=== PATIENT | male | born 1945 | race Caucasian/White ===

== ENCOUNTER 2017-11-02 10:42 | Outpatient (CLI) | payer MEDICARE, BC ==
[2017-11-02 12:03] LABS: Hematocrit 32.9 % (42.0-52.0); Mean Platelet Volume 7.2 fL (7.4-10.4); Red Blood Cell (RBC) Count 3.84 mill/uL (4.70-6.10); White Blood Cell (WBC) Count 4.8 thou/uL (4.8-10.8)
[2017-11-02 12:43] LABS: Anion Gap 9 mmol/L (10-20); BUN (Urea Nitrogen) 26 mg/dL (8.4-25.7); Calc. Creatinine Clearance 0 mL/min (70-130); Calcium 9.2 mg/dL (7.8-10.44); Carbon Dioxide 26 mmol/L (23-31); Chloride 104 mmol/L (98-107); Estimated GFR-MDRD 82
== END 2017-11-02 10:43 | disposition home or self-care (01) ==
LOC: LABBT 10:42
PROVIDERS: ATTEND Neurological Surgery
DX: Z01.818 Encounter for other preprocedural examination (principal); M43.16 Spondylolisthesis, lumbar region
CPT/HCPCS: 80048; 85027; 93005; 93010

== ENCOUNTER 2017-11-04 06:15 | Day surgery (SDC) | payer MEDICARE, BC ==
[2017-11-02 11:07] VITALS: BMI 33.7
--- NOTE | 2017-11-03 17:34 | HP ---
HISTORY OF PRESENT ILLNESS: Mr. Mason is a pleasant 72-year-old man who we know from prior lumbar d ecompression from a little over a year ago that returns now with mostly axial low back pain. Flexion and extension films as well as a CT scan of the lumbar spine reveals spondylolisthesis at L4-L5 that has abnormal motion on the movement films. As such, he is here to discuss treatment options for thi s purpose. PAST MEDICAL HISTORY: Significant for type 2 diabetes, pruritus ani, coronary arterial disease, inso mnia, chronic pain, hypertension, gastroesophageal reflux disease and depression. MEDICATIONS: Duloxetine, aspirin, fluticasone, isosorbide mononitrate, Toprol-XL, Theragran, Nitrost at, omeprazole, insulin pen, glipizide, clopidogrel, Celebrex, Crestor, Levemir, losartan, lidocaine ointment, Valium, Lyrica, hydrocodone and amitriptyline. ALLERGIES: LISINOPRIL AND METFORMIN. PHYSICAL EXAMINATION: The patient is alert and oriented x3. Gait is severely antalgic. Lower extre mity motor exam is normal bilaterally. ASSESSMENT: Unstable spondylolisthesis and back pain. PLAN: Dr. Khan met with the patient, reviewed imaging and ultimately advocated for an L4-L5 fusion. We explained to the patient the risks, benefits, alternatives of the procedure. The patient expres sed understanding and would like to move forward with surgery as discussed. I do believe the patient is mentally competent and capable of making medical decisions for himself. We will move forward wit h surgery as planned. This is Chandan Tang PA-C dictating for Dr. Khan.
[2017-11-04] MEDS ORDERED: Bupivacaine PF 0.5% 30 ML VIAL ONE (06:45)
[2017-11-04] MEDS ORDERED: Thrombin 5000 UNITS/5 ML VIAL ONE (06:45)
[2017-11-04] MEDS ORDERED: Bupivacaine/Epinephrine 0.25% 30 ML VIAL ONE (06:45)
[2017-11-04] MEDS ORDERED: CEFAZOLIN/Water 2 GM/20 ML SYRINGE ONE ×2 (07:04→12:14)
[2017-11-04] MEDS ORDERED: Fentanyl 250 MCG/5 ML VIAL ONE (07:42)
[2017-11-04] MEDS ORDERED: Midazolam HCl 2 mg/2 ml Vial ONE (07:51)
[2017-11-04] MEDS ORDERED: tiZANidine HCl 4 MG TAB ONE (11:52)
[2017-11-04] MEDS ORDERED: Tamsulosin HCl 0.4 MG CAP ONE (11:54)
[2017-11-04] MEDS ORDERED: HYDROcodone/Acetaminophen 5/325 mg Tablet ONE (12:00)
--- NOTE | 2017-11-04 12:32 | OP ---
DATE OF PROCEDURE: 11/04/2017 SURGEON: Socrates Khan M.D. G[employer]ER MECHANIC: Chandan Tang PA-C. INDICATION: Pain. DIAGNOSES: Lumbar stenosis, lumbar spondylolisthesis. PROCEDURE: L4-5 lumbar decompression which is reoperation. ANESTHESIA: General. TECHNIQUE: The patient was brought to the operating room and placed under general anesthesia. He wa s flipped from a supine to a prone position on the operating room table. A linear incision was plann ed at the location of an old incision and extended slightly superior. This area was prepped and drap ed in the usual sterile fashion. Following an appropriate operative pause, the incision was created. Soft tissues were swept away from midline. Self-retaining retractors were placed in the wound for optimal exposure. After confirming the appropriate levels, a high high-speed cutting drill bit, 2, 3 and 4 mm Kerrisons were used to perform a more superior laminectomy. The old laminectomy defect was extended laterally to encompass more of the medial aspect of the facet joints. There did appear to be a milky substance coming from the right side near the L4-5 interface. This was cultured. Because of some concern I had for infection, I decided not to perform an instrumented fusion. We further de compressed the L4-5 segment. The wound was irrigated. Hemostasis was maintained throughout. The wo und was then closed in anatomic layers and a pressure dressing was applied. There were no known proc edural complications.
[2017-11-04] MEDS ORDERED: Glycopyrrolate 0.2 MG/ML 5 ML SYRINGE ONE (16:28)
[2017-11-04] MEDS ORDERED: Lidocaine 1% PF 5 ML VIAL ONE (16:28)
[2017-11-04] MEDS ORDERED: Ketorolac Tromethamine 30 MG/ML VIAL ONE (16:28)
[2017-11-04] MEDS ORDERED: PHENYLEPHRINE-NS 100 MCG/ML 10 ML SYRINGE ONE (16:28)
[2017-11-04] MEDS ORDERED: Ondansetron HCl/PF 4 MG/2 ML Vial ONE (16:28)
[2017-11-04] MEDS ORDERED: Propofol 200 MG/20 ML VIAL ONE (16:28)
[2017-11-04] MEDS ORDERED: ePHEDrine/0.9% NaCl/PF SYRINGE 50 mg/10 ml ONE (16:28)
== END 2017-11-04 12:45 | disposition home or self-care (01) ==
LOC: SDC 06:15
PROVIDERS: ATTEND Neurological Surgery
PROC: 00NY0ZZ Release Lumbar Spinal Cord, Open Approach (ICD-10-PCS; principal; 2017-11-04)
PROC: 01NB0ZZ Release Lumbar Nerve, Open Approach (ICD-10-PCS; 2017-11-04)
DX: M43.16 Spondylolisthesis, lumbar region (principal); M48.061 Spinal stenosis, lumbar region without neurogenic claudication; E11.9 Type 2 diabetes mellitus without complications; G47.00 Insomnia, unspecified; I10 Essential (primary) hypertension; K21.9 Gastro-esophageal reflux disease without esophagitis; F32.9 Major depressive disorder, single episode, unspecified; Z88.8 Allergy status to other drugs, medicaments and biological substances; Z79.82 Long term (current) use of aspirin; Z79.4 Long term (current) use of insulin; Z79.899 Other long term (current) drug therapy; Z98.890 Other specified postprocedural states
CPT/HCPCS: 36416; 76001; 87070; 87205; J0131; J1885; J2001; J2250; J2405; J2704; J3010; S0020

== ENCOUNTER 2018-02-02 09:16 | Outpatient (CLI) | payer MEDICARE, BC ==
--- NOTE | 2018-02-02 11:20 | RAD ---
LUMBAR SPINE THREE VIEWS: History: 72-year-old male with history of low back pain and lumbar radiculopathy with difficulty walking. Hist ory of back surgery. Comparison: 08-06-17 FINDINGS: Neutral, flexion, and extension lateral views of the lumbar spine are performed. There is an approxim ately 1.1 cm diameter anterolisthesis of L4 on L5 without significant abnormal translation between fl exion and extension. There appear to be some post-operative changes at the L4-5 level. Generalized sp ondylosis. No evidence for acute fracture. IMPRESSION: Generalized spondylosis. Stable anterolisthesis of L4 on L5. POS: C
--- NOTE | 2018-02-02 11:44 | CT ---
NONCONTRAST ENHANCED CT IMAGES LUMBAR SPINE: HISTORY: Lumbar radiculopathy (M54.16). COMPARISON: 08/06/2017 TECHNIQUE: Axial images are obtained with coronal and sagittal reconstructions. FINDINGS: T12-L1: Unremarkable. L1-L2: There is a focal area of annulus fibrosis calcification along the posterior paracentral L1-L2 disk. No significant degree of central stenosis seen. L2-L3: There is bilateral facet hypertrophy and some minimal ligamentum flavum hypertrophy. A subtl e broad-based disk bulge is seen. This results in mild central and lateral recess stenosis. L3-L4: There is severe L3-L4 facet hypertrophy. 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 A broad-based di sk bulge is seen. This results in moderate to severe L3-L4 central and lateral recess stenosis. Thi s is unchanged since the previous comparison CT. L4-L5: There are severe L4-L5 facet degenerative changes and hypertrophy. There is anterolisthesis of L4 on L5 with approximately 8 mm of anterolisthesis of L4 on L5. This results in severe L4-L5 nanci tral and lateral recess stenosis. There is moderate bilateral neural foraminal narrowing seen. There are vacuum disk changes seen at the L4-L5 intervertebral disk space. There is a superior endplate compression fracture at the upper aspect of the L5 vertebra. This has n ot significantly changed since the previous comparison exam. L5-S1: There is some calcification along the posterior aspect of the annulus fibrosis at L5-S1. The re is a broad-based disk bulge seen. Bilateral facet hypertrophy is seen. There is a moderate degre e of central stenosis. The severe facet hypertrophy bilaterally does result in moderate bilateral ne ural foraminal narrowing. IMPRESSION: Predominantly L4-L5 and L5 facet degenerative changes with significant stenosis at L4-L5, less so at L5-S1. Bilateral neural foraminal narrowing is also seen. Findings are stable and unchanged. POS: [facility]
== END 2018-02-02 09:17 | disposition home or self-care (01) ==
LOC: TBSIIMAG 09:16
PROVIDERS: ATTEND Neurological Surgery
DX: M47.26 Other spondylosis with radiculopathy, lumbar region (principal); M48.061 Spinal stenosis, lumbar region without neurogenic claudication; M48.07 Spinal stenosis, lumbosacral region; M99.73 Connective tissue and disc stenosis of intervertebral foramina of lumbar region; M43.16 Spondylolisthesis, lumbar region
CPT/HCPCS: 72100; 72131

== ENCOUNTER 2018-07-23 09:18 | Outpatient (CLI) | payer MEDICARE, BC ==
--- NOTE | 2018-07-23 10:46 | ULT ---
HEPATIC SONOGRAM WITH DUPLEX EVALUATION: HISTORY: Abnormal liver function tests. FINDINGS: Gallbladder is surgically absent. The common duct is 0.5 cm. Liver is diffusely echogenic without focal mass or intrahepatic biliary dilatation. No free fluid. The spleen is 14.1 cm without focal abnormality. Good color and spectral Doppler flow are present within the hepatic and splenic arteries. Portal nivia ous flow is towards the liver. Hepatic venous flow is towards the IVC. IMPRESSION: 1. Status post cholecystectomy. 2. Hepatosteatosis. 3. Findings of portal venous hypertension include mild splenomegaly. Appropriate directional portal venous flow. POS: [facility]
== END 2018-07-23 09:19 | disposition home or self-care (01) ==
LOC: SCSULT 09:18
PROVIDERS: ATTEND Internal Medicine Gastroenterology
DX: L29.0 Pruritus ani (principal); R94.5 Abnormal results of liver function studies; F10.10 Alcohol abuse, uncomplicated; D50.1 Sideropenic dysphagia; K76.0 Fatty (change of) liver, not elsewhere classified; K76.6 Portal hypertension; Z79.1 Long term (current) use of non-steroidal anti-inflammatories (NSAID); Z90.49 Acquired absence of other specified parts of digestive tract
CPT/HCPCS: 76705

== ENCOUNTER 2019-08-08 13:23 | Outpatient (CLI) | payer MEDICARE, BC ==
[2019-08-08] MEDS ORDERED: Sodium Chloride 0.9% 15 ML NEB ONE (15:00)
--- NOTE | 2019-08-08 16:49 | HP ---
HISTORY OF PRESENT ILLNESS: Mr. Jimbo Mason is a very pleasant 73-year-old gentleman, who presents [facility] for evaluation of wounds of the lower legs and right and left medial buttocks secondary to severe pruritus. The patient was previously seen in the [facility]ound Center in 2010 for ulcerations of the perianal region from pruritus ani. Today, the patient reports wounds of the lower legs secondary to pruritus. The patient was referred to the Wound Center by Dr. Tonia Lees on 07/12/2019. The patient states he has been seen by Dermatology, Neurology, and Surgery for his pruritus and wounds. PAST MEDICAL HISTORY: 1. Diabetes mellitus. 2. Hypertension. 3. Coronary artery disease. 4. Gastroesophageal reflux disease. 5. Obstructive sleep apnea. 6. Hypothyroidism. 7. History of anemia. PAST SURGICAL HISTORY: 1. Cholecystectomy. 2. Shoulder surgery. 3. Knee surgery. 4. L4-L5 lumbar decompression on 09/08/2016. 5. Redo L4-L5 lumbar decompression on 11/04/2017. 6. Tonsillectomy. MEDICATIONS: 1. Levothyroxine. 2. Levemir. 3. Humalog. 4. Glipizide. 5. Crestor. 6. Prilosec. 7. Advil. 8. Aspirin. 9. Isosorbide. 10. Metoprolol. 11. Citalopram. 12. Losartan. 13. Synthroid. 14. FeSO4. 15. Zolpidem. 16. Multivitamin. 17. Vitamin D. 18. Fish oil. 19. Tylenol No. 3. ALLERGIES: LISINOPRIL. SOCIAL HISTORY: Social history is significant for tobacco use of approximately 2 packs of cigarettes per day beginning at age 15 or 16. The patient states that he stopped smoking at age 23. The patient admits to the consumption of 2 to 4 drinks per day also since age 16. FAMILY HISTORY: Family history is negative for diabetes mellitus or coronary artery disease. PHYSICAL EXAMINATION: VITAL SIGNS: Temperature 98.4, pulse 89, respirations 20, and blood pressure 173/77. Accu-Chek 129. GENERAL: A 73-year-old gentleman, lying on table in examination room, in no acute distress. HEENT: Normocephalic and atraumatic. NECK: No nuchal rigidity. CHEST: Clear to auscultation. CV: Regular rate and rhythm. ABDOMEN: Soft. EXTREMITIES: Wounds over the right and left lower legs are present from scratching of the skin. All of the wounds are associated with eschar. No drainage is associated with any of the wounds serous or purulent. No cellulitis of the right or left lower extremity is appreciated. No maceration of the skin of the right or left lower extremity is appreciated. No significant edema of the right or left lower extremity is present on exam today. NEUROLOGIC: Grossly nonfocal. BACK: Multiple ulcerations of the right and left medial buttocks are present. A sample of the purulent drainage associated with one of the ulcerations was sent for aerobic and anaerobic cultures. No fluctuant masses are present over the right or left buttock, only ulcerations. ASSESSMENT AND PLAN: 1. Multiple ulcerations of right and left medial buttocks as described above. The patient also has wounds of the right and left lower legs associated with dry stable eschar from scratching. The patient has been given a prescription for Bactrim DS #20 one p.o. b.i.d. x10 days. Antibiotic therapy will be modified based upon the results of the cultures obtained today. As stated above, no fluctuant masses are appreciated over the right or left buttock. I will see Mr. Mason again in 2 to 3 weeks. I will also discuss the treatment plan with the patient's primary care physician, Dr. Tonia Lees. 2. Diabetes mellitus. The patient's Accu-Chek in clinic today is 129. The patient has been told that for optimal wound healing, his blood glucoses should remain below 150. 3. Hypertension. 4. Coronary artery disease. 5. Gastroesophageal reflux disease. 6. Obstructive sleep apnea. 7. Hypothyroidism. 8. History of anemia. Job ID: [id number]
== END 2019-08-08 13:24 | disposition home or self-care (01) ==
LOC: WCC 13:23
PROVIDERS: ATTEND Family Medicine
DX: E11.622 Type 2 diabetes mellitus with other skin ulcer (principal); L98.419 Non-pressure chronic ulcer of buttock with unspecified severity; I10 Essential (primary) hypertension; I25.10 Atherosclerotic heart disease of native coronary artery without angina pectoris; K21.9 Gastro-esophageal reflux disease without esophagitis; G47.33 Obstructive sleep apnea (adult) (pediatric); E03.9 Hypothyroidism, unspecified; Z86.2 Personal history of diseases of the blood and blood-forming organs and certain disorders involving the immune mechanism
CPT/HCPCS: 87070; 87077; 87205; A4218

== ENCOUNTER 2019-08-29 10:37 | Outpatient (CLI) | payer MEDICARE, BC ==
--- NOTE | 2019-08-29 12:15 | PRG ---
DATE OF SERVICE: 08/29/2019 HISTORY: Mr. Jimbo Mason is a 73-year-old gentleman who presents to the [facility] for evaluation of wounds of the lower legs and right and left medial buttocks secondary to severe pruritus. The patient was previously seen in the Wound Center in 2010 for ulcerations of the perianal region from pruritus ani. Today, the patient reports wounds of the upper extremity secondary to pruritus. At the time of the patient's last visit, Mr. Mason reported wounds of the lower legs secondary to pruritus. The patient was referred to the Wound Center by Dr. Stephania Lees on 07/12/2019. Previously, the patient stated that he had been seen by Dermatology, Neurology, and Surgery for his pruritus and wounds. PHYSICAL EXAMINATION: VITAL SIGNS: Temperature 97.9, pulse 62, respirations 16, and blood pressure 129/65. Accu-Chek 156. BACK: Multiple ulcerations of the right and left medial buttocks are present. No fluctuant masses are present over the right or left buttock, only ulcerations. ASSESSMENT AND PLAN: 1. Multiple ulcerations of right and left medial buttocks as described above. The patient was previously given a prescription for Bactrim DS #20 one p.o. b.i.d. x10 days. Cultures obtained at the time of the patient's last visit revealed the growth of Staphylococcus aureus, sensitive to Bactrim. Cultures also revealed the growth of Streptococcus agalactiae group B. As stated above, no fluctuant masses are appreciated over the right or left buttock. I will discuss the treatment plan with the patient's primary care physician, Dr. Stephania Lees, as well as the patient's son-in-law who is a hospitalist here at [facility] as per the patient's request. 2. Diabetes mellitus. The patient's Accu-Chek in clinic today is 156. The patient has been reminded that for optimal wound healing, his blood glucoses should remain below 150. 3. Hypertension. 4. Coronary artery disease. 5. Gastroesophageal reflux disease. 6. Obstructive sleep apnea. 7. Hypothyroidism. 8. History of anemia. Job ID: [id number]
== END 2019-08-29 10:38 | disposition home or self-care (01) ==
LOC: WCC 10:37
PROVIDERS: ATTEND Family Medicine
DX: E11.622 Type 2 diabetes mellitus with other skin ulcer (principal); L98.419 Non-pressure chronic ulcer of buttock with unspecified severity; L29.9 Pruritus, unspecified; I10 Essential (primary) hypertension; I25.10 Atherosclerotic heart disease of native coronary artery without angina pectoris; K21.9 Gastro-esophageal reflux disease without esophagitis; G47.33 Obstructive sleep apnea (adult) (pediatric); E03.9 Hypothyroidism, unspecified; Z86.2 Personal history of diseases of the blood and blood-forming organs and certain disorders involving the immune mechanism
CPT/HCPCS: 97602

== ENCOUNTER 2021-04-26 10:04 | Outpatient (CLI) | payer MEDICARE, BC | END 2021-04-26 10:05 | disposition home or self-care (01) | LOC: NM 10:04 | PROVIDERS: ATTEND Internal Medicine Critical Care Medicine | DX: I26.99 Other pulmonary embolism without acute cor pulmonale (principal); I70.90 Unspecified atherosclerosis; J98.4 Other disorders of lung | CPT/HCPCS: 71046; 78451; A9540 ==

== ENCOUNTER 2022-10-21 10:24 | Outpatient (CLI) | payer MEDICARE, BC | END 2022-10-21 10:25 | disposition home or self-care (01) | LOC: SCSRAD 10:24 | PROVIDERS: ATTEND Neurological Surgery | DX: M47.26 Other spondylosis with radiculopathy, lumbar region (principal) | CPT/HCPCS: 72110 ==

== ENCOUNTER 2022-10-21 18:24 | Emergency (ER) | payer MEDICARE, BC ==
[2022-10-21] MEDS ORDERED: Morphine 4 MG/ML VIAL ONE ×2 (19:02)
[2022-10-21] MEDS ORDERED: Orphenadrine Citrate 60 MG/2 ML VIAL ONE (19:03)
[2022-10-21 20:28] LABS: #Eosinphils 0.1 thou/uL (0.0-0.7); #Lymphocytes 1.1 thou/uL (1.20-3.40); #Monocytes 0.5 thou/uL (0.11-0.59); %Basophils 0.3 % (0.0-1.0); %Eosinophils 1.8 % (0.0-10.0); %Lymphocytes 19.4 % (21.0-51.0); %Monocytes 8.1 % (0.0-10.0); %Neutrophils 70.5 % (42.0-75.0); Hemoglobin 12.4 g/dL (14.0-18.0); Mean Corpuscular Hemoglobin 31.3 pg (27.0-31.0); Mean Corpuscular Volume 91.9 fl (78.0-98.0); Mean Platelet Volume 7.4 fL (7.4-10.4); Platelet Count 94 10x3/uL (130-400); RBC Distribution Width 13.1 % (11.5-14.5); Red Blood Cell (RBC) Count 3.97 mill/uL (4.70-6.10); White Blood Cell (WBC) Count 5.6 10x3/uL (4.8-10.8)
[2022-10-21 20:45] LABS: ALT (SGPT) 23 U/L (8-55); AST (SGOT) 26 U/L (5-34); Albumin 3.6 g/dL (3.4-4.8); Alkaline Phosphatase 64 U/L (40-110); Anion Gap 12 mmol/L (10-20); BUN (Urea Nitrogen) 30 mg/dL (8.4-25.7); Bilirubin, Total 0.5 mg/dL (0.2-1.2); Calc. Creatinine Clearance 0 mL/min (70-130); Calcium 9.1 mg/dL (7.8-10.44); Carbon Dioxide 22 mmol/L (23-31); Chloride 108 mmol/L (98-107); Estimated GFR 69; Globulin 3.1 g/dL (2.4-3.5); Glucose 133 mg/dL (83-110); Lipase 17 U/L (8-78); Potassium 4.5 mmol/L (3.5-5.1); Protein, Total 6.7 g/dL (5.8-8.1); Sodium 137 mmol/L (136-145)
[2022-10-21 21:28] LABS: Bilirubin Negative (Negative); Blood, Urine Negative (Negative); Clarity Clear (Clear); Glucose, Urine (Dipstick) Normal (Negative); Ketone, Urine Negative (Negative); Leukocyte Negative Leu/uL (Negative); Nitrite Negative (Negative); Protein, Urine (Dipstick) Negative (Neg-Trace); Specific Gravity, Urine 1.023 (1.002-1.036); Urobilinogen Normal mg/dL (Less than 2); pH, Urine 5.5 (5.0-9.0)
== END 2022-10-21 22:36 | disposition home or self-care (01) ==
LOC: ERS 18:24
DX: M62.830 Muscle spasm of back (principal); E11.9 Type 2 diabetes mellitus without complications; I10 Essential (primary) hypertension; Z79.84 Long term (current) use of oral hypoglycemic drugs
CPT/HCPCS: 36415; 72110; 80053; 81003; 83690; 85025; 85652; 86140; 96372; 99284; J2270; J2360

== ENCOUNTER 2022-12-05 09:56 | Outpatient (CLI) | payer MEDICARE, BC ==
[2022-12-05 10:46] LABS: Hemoglobin 13.5 g/dL (13.5-17.5); Mean Corpuscular HGB CONC 33.9 g/dL (32.0-36.0); Mean Corpuscular Hemoglobin 30.5 pg (27.0-33.0); Mean Platelet Volume 9.8 fl (7.4-10.4); Platelet Count 96 10x3/uL (150-450); RBC Distribution Width 13.6 % (11.5-14.5); Red Blood Cell (RBC) Count 4.42 10x6/uL (4.32-5.72); White Blood Cell (WBC) Count 4.7 10x3/uL (3.5-10.5)
[2022-12-05 11:11] LABS: Anion Gap 13 mmol/L (10-20); BUN (Urea Nitrogen) 27 mg/dL (8.4-25.7); Calc. Creatinine Clearance 0 mL/min (70-130); Calcium 9.6 mg/dL (7.8-10.44); Carbon Dioxide 22 mmol/L (23-31); Chloride 104 mmol/L (98-107); Estimated GFR 83; Glucose 219 mg/dL (83-110); Potassium 4.6 mmol/L (3.5-5.1); Sodium 134 mmol/L (136-145)
== END 2022-12-05 09:57 | disposition home or self-care (01) ==
LOC: LABBT 09:56
PROVIDERS: ATTEND Neurological Surgery
DX: Z01.812 Encounter for preprocedural laboratory examination (principal); M48.061 Spinal stenosis, lumbar region without neurogenic claudication
CPT/HCPCS: 80048; 85027

== ENCOUNTER 2022-12-10 05:33 | Day surgery (SDC) | payer MEDICARE, BC ==
[2022-12-09 08:59] VITALS: BMI 30.8
[2022-12-10] MEDS ORDERED: Thrombin 5000 UNITS/5 ML VIAL ONE (06:25)
[2022-12-10] MEDS ORDERED: Bupivacaine HCl 0.5%/Epinephrine 1:200,000/PF 30 ml Vial ONE (06:25)
[2022-12-10] MEDS ORDERED: fentaNYL PF 100 MCG/2 ML SYRINGE ONE (07:06)
[2022-12-10] MEDS ORDERED: SUGAMMADEX SODIUM 200 MG/2 ML VIAL ONE (07:06)
[2022-12-10] MEDS ORDERED: Sodium Chloride 0.9% 100 ML ONE ×2 (07:08→10:51)
[2022-12-10] MEDS ORDERED: CEFAZOLIN 2 GM VIAL ONE ×2 (07:08→10:51)
[2022-12-10] MEDS ORDERED: Rocuronium Bromide 10 MG/ML (10ML VIAL) ONE (07:23)
[2022-12-10] MEDS ORDERED: PROPOFOL 200 MG/20 ML VIAL ONE (07:23)
[2022-12-10] MEDS ORDERED: PHENYLEPHRINE-NS 100 MCG/ML 10 ML SYRINGE ONE (07:23)
[2022-12-10] MEDS ORDERED: Ondansetron PF 4 MG/2 ML Vial ONE (07:23)
[2022-12-10] MEDS ORDERED: Lidocaine 1% PF 5 ML VIAL ONE (07:23)
[2022-12-10] MEDS ORDERED: Fentanyl 100 MCG/2 ML VIAL ONE (08:56)
[2022-12-10] MEDS ORDERED: Tamsulosin HCl 0.4 MG CAP ONE (09:04)
== END 2022-12-10 11:42 | disposition home or self-care (01) ==
LOC: SDC 05:33
PROVIDERS: ATTEND Neurological Surgery
PROC: 01NB0ZZ Release Lumbar Nerve, Open Approach (ICD-10-PCS; principal; 2022-12-10)
DX: M48.062 Spinal stenosis, lumbar region with neurogenic claudication (principal); M43.16 Spondylolisthesis, lumbar region; E11.9 Type 2 diabetes mellitus without complications; E78.5 Hyperlipidemia, unspecified; G89.4 Chronic pain syndrome; I10 Essential (primary) hypertension; K21.9 Gastro-esophageal reflux disease without esophagitis; I25.10 Atherosclerotic heart disease of native coronary artery without angina pectoris; M19.90 Unspecified osteoarthritis, unspecified site; Z79.82 Long term (current) use of aspirin; Z79.84 Long term (current) use of oral hypoglycemic drugs; Z79.890 Hormone replacement therapy; Z79.899 Other long term (current) drug therapy; Z88.8 Allergy status to other drugs, medicaments and biological substances; Z95.5 Presence of coronary angioplasty implant and graft
CPT/HCPCS: 36416; C1713; J2405; J2704; J3010; J3490

== ENCOUNTER 2023-07-28 10:29 | Outpatient (CLI) | payer MEDICARE, BC ==
[2023-07-28] MEDS ORDERED: Iopamidol-370 76% 500 ML MDV (1 ML CHARGE) ONE (10:58)
== END 2023-07-28 10:30 | disposition home or self-care (01) ==
LOC: BICCT 10:29
PROVIDERS: ATTEND Physician Assistant Medical
DX: R19.7 Diarrhea, unspecified (principal); K70.30 Alcoholic cirrhosis of liver without ascites
CPT/HCPCS: 74170; Q9967